=== PATIENT | male | born 1980 | race African-American/Black ===

== ENCOUNTER 2021-10-09 08:52 | Observation (INO) ==
[2021-10-09] MEDS ORDERED: Perflutren Lipid Microsphere 1.3 ML in 0.9 % Sodium Chloride 8.7 ML IVP PRN ×2 (09:32→16:32)
[2021-10-09 10:19] LABS: Basophils % 0.7 %; Eosinophils # 0.4 K/mcL (0.0-0.6); Eosinophils % 8.1 %; Hemoglobin 15.2 g/dL (12.9-16.9); Immature Granulocytes % 0.2 % (0-4); Lymphocytes # 1.8 K/mcL (0.6-4.6); Lymphocytes % 33.1 %; Mean Corpuscular Hemoglobin 31.1 pg (28.0-33.3); Mean Corpuscular Volume 94.1 fL (83.0-100.0); Mean Platelet Volume 11.4 fL (9.4-12.4); Monocytes # 0.4 K/mcL (0.0-1.3); Monocytes % 6.9 %; Neutrophils # 2.8 K/mcL (1.6-8.9); Platelet Count 197 K/mcL (140-400); Red Blood Count 4.89 M/mcL (4.19-5.50); Red Cell Distribution Width 11.7 % (11.5-14.5); White Blood Count 5.4 K/mcL (4.3-11.1)
[2021-10-09 10:41] LABS: BUN/Creatinine Ratio 11 (6-26); Blood Urea Nitrogen 11 mg/dL (6-20); Calcium 9.2 mg/dL (8.6-10.3); Carbon Dioxide 29 mEq/L (23-29); Chloride 107 mEq/L (98-107); Glucose 84 mg/dL (70-105); Osmolality,Calculated 289 (280-300); Sodium 140 mEq/L (136-145); Troponin I < 0.03 ng/mL (< 0.04); eGFR For African Americans > 60 (> 60); eGFR For Non-African Americans > 60 (> 60)
[2021-10-09 14:41] LABS: Adenovirus Not Detected (Not Detect); Bordetella Pertussis Not Detected (Not Detect); Chlamydophila pneumoniae Not Detected (Not Detect); Coronavirus 229E Not Detected (Not Detect); Coronavirus HKU1 Not Detected (Not Detect); Coronavirus NL63 Not Detected (Not Detect); Coronavirus OC43 Not Detected (Not Detect); Human Metapneumovirus Not Detected (Not Detect); Human Rhinovirus/Enterovirus Not Detected (Not Detect); Influenza A Subtype 2009 H1 Not Detected (Not Detect); Influenza B Not Detected (Not Detect); Mycoplasma pneumoniae Not Detected (Not Detect); Parainfluenza Virus 1 Not Detected (Not Detect); Parainfluenza Virus 2 Not Detected (Not Detect); Parainfluenza Virus 3 Not Detected (Not Detect); Parainfluenza Virus 4 Not Detected (Not Detect); Respiratory Syncytial Virus Not Detected (Not Detect); SARS-CoV-2 Not Detected (Not Detect)
[2021-10-09] MEDS ORDERED: Ondansetron 4 MG/2 ML VIAL IVP PRN (15:34)
[2021-10-09] MEDS ORDERED: Naloxone 0.4 MG/ML INJ IVP PRN (15:34)
[2021-10-09] MEDS ORDERED: Furosemide 20 MG/2 ML VIAL IVP SCH (15:45)
[2021-10-09] MEDS ORDERED: amLODIPine 5 MG TABLET PO SCH (15:45)
[2021-10-09] MEDS ORDERED: Ibuprofen 400 MG TABLET PO SCH (16:30)
[2021-10-09] MEDS ORDERED: carvediloL 6.25 MG TABLET PO SCH (17:00)
[2021-10-09] MEDS ORDERED: NIFEdipine XL (24 HR) 30 MG TAB.ER.24 PO SCH (18:30)
[2021-10-09] MEDS: Ibuprofen 200 MG TABLET PO SCH ×2 (18:57→23:12)
[2021-10-09] MEDS ORDERED: Melatonin 3 MG TABLET PO PRN (22:23)
[2021-10-09] MEDS: hydrALAZINE 25 MG TABLET PO SCH (23:11)
[2021-10-10 03:07] LABS: Basophils # 0.1 K/mcL (0.0-0.2); Basophils % 0.8 %; Eosinophils # 0.9 K/mcL (0.0-0.6); Hematocrit 48.4 % (37.5-50.1); Hemoglobin 16.2 g/dL (12.9-16.9); Immature Granulocytes % 0.3 % (0-4); Lymphocytes # 2.5 K/mcL (0.6-4.6); Mean Corpuscular HGB Conc 33.5 g/dL (31.6-35.5); Mean Corpuscular Hemoglobin 31.1 pg (28.0-33.3); Mean Corpuscular Volume 92.9 fL (83.0-100.0); Mean Platelet Volume 11.5 fL (9.4-12.4); Monocytes # 0.6 K/mcL (0.0-1.3); Monocytes % 8.3 %; Neutrophils # 3.1 K/mcL (1.6-8.9); Platelet Count 223 K/mcL (140-400); Red Blood Count 5.21 M/mcL (4.19-5.50); Red Cell Distribution Width 11.4 % (11.5-14.5); Segmented Neutrophils % 43.6 %; White Blood Count 7.1 K/mcL (4.3-11.1)
[2021-10-10 03:36] LABS: BUN/Creatinine Ratio 13 (6-26); Blood Urea Nitrogen 12 mg/dL (6-20); Calcium 9.4 mg/dL (8.6-10.3); Carbon Dioxide 24 mEq/L (23-29); Chloride 106 mEq/L (98-107); Glucose 94 mg/dL (70-105); Osmolality,Calculated 286 (280-300); Potassium 3.9 mEq/L (3.5-5.1); Sodium 138 mEq/L (136-145); eGFR For African Americans > 60 (> 60); eGFR For Non-African Americans > 60 (> 60)
[2021-10-10] MEDS ORDERED: carvediloL 6.25 MG TABLET PO SCH (08:00)
[2021-10-10] MEDS ORDERED: BENAZEPRIL HCL 40 MG PO SCH (09:00)
[2021-10-10] MEDS: hydrALAZINE 25 MG TABLET PO SCH ×3 (09:25→23:53)
[2021-10-10] MEDS: lisinopriL 20 MG TABLET PO SCH (09:25)
[2021-10-10] MEDS: Ibuprofen 200 MG TABLET PO SCH (09:25)
[2021-10-10] MEDS: NIFEdipine XL (24 HR) 60 MG TAB.ER.24 PO SCH (09:25)
[2021-10-10] MEDS ORDERED: Ketorolac 30 MG/ML VIAL IVP SCH (12:00)
[2021-10-10] MEDS ORDERED: Lidocaine -MPF 1% 5 ML AMPUL ONE (12:50)
[2021-10-10] MEDS: carvediloL 6.25 MG TABLET PO SCH (15:48)
[2021-10-10] MEDS: Famotidine 20 MG TABLET PO SCH ×2 (15:52→19:28)
[2021-10-10] MEDS: Ibuprofen 400 MG TABLET PO SCH ×2 (15:53→23:53)
[2021-10-11] MEDS: NIFEdipine XL (24 HR) 60 MG TAB.ER.24 PO SCH (07:56)
[2021-10-11] MEDS: carvediloL 6.25 MG TABLET PO SCH (07:56)
[2021-10-11 07:57] VITALS: BP 162/102; PULSE 70; TEMP 98.2
[2021-10-11] MEDS: hydrALAZINE 25 MG TABLET PO SCH (07:57)
[2021-10-11] MEDS: Ibuprofen 400 MG TABLET PO SCH (07:57)
[2021-10-11] MEDS: Famotidine 20 MG TABLET PO SCH (07:57)
[2021-10-11] MEDS: lisinopriL 20 MG TABLET PO SCH (07:57)
[2021-10-11 09:38] VITALS: O2SAT 96
== END 2021-10-11 10:58 | disposition home or self-care (01) ==
LOC: 2NENU 08:52 → EMEROOARM 08:52 → 2NENU 17:50
PROVIDERS: ADMIT Internal Medicine; ATTEND Internal Medicine